=== PATIENT | male | born 1965 | race American Indian/Alaskan Native ===

== ENCOUNTER 2021-02-07 18:26 | Emergency (ER) | payer MEDICAID ==
[2021-02-07 18:33] VITALS: BP 136/91
[2021-02-07] MEDS ORDERED: ACETAMINOPHEN 325 MG/10.15 ML ORAL LIQD UNIT DOSE PO PRN (18:33)
[2021-02-07] MEDS ORDERED: predniSONE 20 MG TAB PO ONE (19:48)
[2021-02-07] MEDS ORDERED: ACETAMINOPHEN 325 MG/10.15 ML ORAL LIQD UNIT DOSE PO ONE (19:49)
--- NOTE | 2021-02-07 19:56 | Emergency Department Report ---
ED General Adult HPI - General Chief complaint: Sore Throat Stated complaint: POSS TONSILLITIS Time Seen by Provider: 02/07/21 19:47 Source: patient Mode of arrival: Ambulatory Limitations: No Limitations - History of Present Illness Initial comments: 55-year-old -[place] male patient presents with complaints of sore throat x2 days. He reports a history of recurrent strep as a child. He denies any cough, shortness of breath, chest pain, rash, or recent known sick contacts. He rates his current pain as a 9/10 in severity and states it is not improving with ibuprofen at home. Pain worsens with swallowing per patient. He denies any other prior medical history -: Sudden Severity scale (0 -10): 10 - Related Data Previous Rx's Medication Instructions Recorded Last Taken Type Amoxicillin [Trimox CAP] 500 mg PO BID 10 Days #20 capsule 02/07/21 Unknown Rx predniSONE [Deltasone] 20 mg PO QDAY 2 Days #2 tab 02/07/21 Unknown Rx Allergies Allergy/AdvReac Type Severity Reaction Status Date / Time No Known Allergies Allergy Unverified 02/07/21 18:29 ED Review of Systems ROS: Stated complaint: POSS TONSILLITIS Other details as noted in HPI Constitutional: malaise. 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 Absent: scleral icterus - Expanded ENT Exam Expanded Mouth exam: Absent: drooling, trismus, muffled voice Throat exam: Positive: tonsillar erythema (Bilateral), tonsillomegaly (Bilateral), tonsillar exudate (Bilateral), other (Uvula is midline). Negative: R peritonsillar mass, L peritonsillar mass - Neck Neck exam: Present: full ROM, lymphadenopathy (Mild anterior cervical) - Respiratory Respiratory exam: Present: normal lung sounds bilaterally. Absent: respiratory distress - Cardiovascular Cardiovascular Exam: Present: regular rate, normal rhythm - Neurological Exam Neurological exam: Present: alert, oriented X3 - Psychiatric Psychiatric exam: Present: normal affect, normal mood - Skin Skin exam: Present: warm, dry, intact, normal color. Absent: rash, cyanosis, diaphoretic, petechiae, pallor, ecchymosis ED Course Vital Signs 02/07/21 02/07/21 18:30 19:59 Temperature 101.4 F H Pulse Rate 92 H Respiratory 22 18 Rate Blood Pressure 136/91 O2 Sat by Pulse 99 Oximetry ED Medical Decision Making - Medical Decision Making 55-year-old -[place] male patient presents with complaints of sore throat x2 days. He reports a history of recurrent strep as a child. He denies any cough, shortness of breath, chest pain, rash, or recent known sick contacts. He rates his current pain as a 9/10 in severity and states it is not improving with ibuprofen at home. Pain worsens with swallowing per patient. He denies any other prior medical history Acute bacterial pharyngitis noted on exam. Will treat with Amoxil. Recommend follow-up with PCP in 3 to 5 days. Fever improved with Tylenol given here in ED. He is well-appearing and stable for discharge home. Discussed signs and symptoms that should prompt immediate return to the emergency department in detail with patient who verbalizes understanding. Critical care attestation.: If time is entered above; I have spent that time in minutes in the direct care of this critically ill patient, excluding procedure time. ED Disposition Clinical Impression: Acute bacterial pharyngitis Disposition: DC-01 TO HOME OR SELFCARE Is pt being admited?: No Condition: Stable Instructions: Strep Throat, Adult Prescriptions: predniSONE [Deltasone] 20 mg PO QDAY 2 Days #2 tab Amoxicillin [Trimox CAP] 500 mg PO BID 10 Days #20 capsule Forms: Work/School Release Form(ED) Time of Disposition: 19:53
== END 2021-02-07 20:30 | disposition home or self-care (01) ==
LOC: ED 18:26
DX: J02.8 Acute pharyngitis due to other specified organisms (principal); B96.89 Other specified bacterial agents as the cause of diseases classified elsewhere; F12.90 Cannabis use, unspecified, uncomplicated; Z79.899 Other long term (current) drug therapy
CPT/HCPCS: 99282; J7512

== ENCOUNTER 2021-07-25 21:05 | Emergency (ER) | payer MEDICAID ==
[2021-07-25] MEDS ORDERED: hydrOXYzine PAMOATE 25 MG CAP PO ONE (21:27)
[2021-07-25] MEDS ORDERED: methylPREDNISolone Sod Succinate 125 MG/2 ML INJ IM ONE (21:27)
[2021-07-25] MEDS ORDERED: FAMOTIDINE 20 MG TAB PO ONE (21:27)
--- NOTE | 2021-07-25 23:51 | Emergency Department Report ---
ED Allergic Reaction HPI - General Chief complaint: Allergic Reaction Stated complaint: allergic rx Source: patient Mode of arrival: Ambulatory Limitations: No Limitations - History of Present Illness Initial Comments: Patient is a 56-year-old -Vietnamese male with no past medical history presented to the ED with complaint of acute onset persistent diffuse itchy erythematous maculopapular erythematous acute urticarial rashes on the face and on the scalp for the last 2 days after using a different dye to dye his hair 2 days ago. Patient states that he tried to take Benadryl at home with no relief. Patient denies dizziness, syncope, dysphagia, dysphonia, cough, wheezing, chest pain, shortness of breath, nausea, vomiting, fever, chills or palpitations. MD Complaint: allergic reaction, hives, facial swelling, other (Itchy scalp) -: Sudden, days(s) (2) Exposure: other (Hair dye) Symptoms: rash, itching, facial swelling. denies: lip swelling, difficulty swallowing, difficulty breathing, orolingual swelling, hoarseness, syncopy, nausea, vomiting, other Severity: moderate Treatment Prior to Arrival: benadryl Previous Allergy History: none - Related Data Previous Rx's Medication Instructions Recorded Last Taken Type Amoxicillin [Trimox CAP] 500 mg PO BID 10 Days #20 capsule 02/07/21 Unknown Rx predniSONE [Deltasone] 20 mg PO QDAY 2 Days #2 tab 02/07/21 Unknown Rx Famotidine [Pepcid] 20 mg PO BID #30 tablet 07/25/21 Unknown Rx Prednisone [predniSONE 10 mg 10 mg PO .TAPER #1 tab.ds.pk 07/25/21 Unknown Rx (6-Day Pack, 21 Tabs)] hydrOXYzine PAMOATE [Vistaril] 50 mg PO Q8HR PRN #30 capsule 07/25/21 Unknown Rx Allergies Allergy/AdvReac Type Severity Reaction Status Date / Time No Known Allergies Allergy Unverified 02/07/21 18:29 ED Review of Systems ROS: Stated complaint: allergic rx Other details as noted in HPI Constitutional: denies: chills, fever Eyes: other (With mild swelling). denies: eye pain, eye discharge, vision change ENT: denies: ear pain, throat pain Respiratory: denies: cough, shortness of breath, wheezing Cardiovascular: denies: chest pain, palpitations Endocrine: no symptoms reported Gastrointestinal: denies: abdominal pain, nausea, diarrhea Genitourinary: denies: urgency, dysuria Musculoskeletal: denies: back pain, joint swelling, arthralgia Skin: rash (Itchy erythematous maculopapular rashes on scalp and face), change in color, pruritus. 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 - Surgical History Past Surgical History?: No Additional Surgical History: BRAIN - Social History Smoking Status: Never Smoker Substance Use Type: Marijuana - Medications Home Medications: Home Medications Medication Instructions Recorded Confirmed Last Taken Type Amoxicillin [Trimox CAP] 500 mg PO BID 10 Days #20 capsule 02/07/21 Unknown Rx predniSONE [Deltasone] 20 mg PO QDAY 2 Days #2 tab 02/07/21 Unknown Rx Famotidine [Pepcid] 20 mg PO BID #30 tablet 07/25/21 Unknown Rx Prednisone [predniSONE 10 mg 10 mg PO .TAPER #1 tab.ds.pk 07/25/21 Unknown Rx (6-Day Pack, 21 Tabs)] hydrOXYzine PAMOATE [Vistaril] 50 mg PO Q8HR PRN #30 capsule 07/25/21 Unknown Rx ED Physical Exam - General Limitations: No Limitations General appearance: alert, in no apparent distress - Head Head exam: Present: other (Mildly erythematous maculopapular urticarial rashes on the scalp with clear discharge) - Eye Eye exam: Present: normal appearance, PERRL, EOMI, other (Mild bilateral eyelid swelling) Pupils: Present: normal accommodation - ENT ENT exam: Present: normal exam, normal orophraynx, mucous membranes moist, TM's normal bilaterally, normal external ear exam - Neck Neck exam: Present: normal inspection, full ROM. Absent: tenderness, meningismus, lymphadenopathy, thyromegaly - Respiratory Respiratory exam: Present: normal lung sounds bilaterally. Absent: respiratory distress, wheezes, rales, rhonchi, chest wall tenderness, accessory muscle use, decreased breath sounds, prolonged expiratory - Cardiovascular Cardiovascular Exam: Present: regular rate, normal rhythm, normal heart sounds. Absent: bradycardia, tachycardia, systolic murmur, diastolic murmur, rubs, gallop - GI/Abdominal GI/Abdominal exam: Present: soft, normal bowel sounds. Absent: distended, tenderness, guarding, hyperactive bowel sounds, hypoactive bowel sounds, organomegaly - Extremities Exam Extremities exam: Present: normal inspection, full ROM, normal capillary refill - Back Exam Back exam: Present: normal inspection, full ROM. Absent: tenderness, CVA tenderness (R), CVA tenderness (L), muscle spasm, paraspinal tenderness, vertebral tenderness - Neurological Exam Neurological exam: Present: alert, oriented X3, CN II-XII intact, normal gait, reflexes normal - Psychiatric Psychiatric exam: Present: normal affect, normal mood - Skin Skin exam: Present: warm, dry, intact, normal color, rash (Mild erythematous maculopapular urticarial rashes on the face and scalp), erythema, urticaria ED Course Vital Signs 07/25/21 21:10 Temperature 98.3 F Pulse Rate 83 Respiratory 16 Rate Blood Pressure 136/96 O2 Sat by Pulse 97 Oximetry ED Medical Decision Making - Medical Decision Making This is a 56-year-old -[place] male with no past medical history presented to the ED with complaint of acute onset persistent diffuse itchy erythematous maculopapular erythematous acute urticarial rashes on the face and on the scalp for the last 2 days after using a different dye to dye his hair 2 days ago. Patient states that he tried to take Benadryl at home with no relief. In the ED, patient is alert and oriented x3 and is not in any distress. Patient is hemodynamically stable. Patient was treated in the ED with Vistaril, Pepcid and Solu-Medrol 125 mg intramuscular injection. On reevaluation, patient's itching resolved with medications. Patient was discharged home on more steroid prescriptions and Pepcid and was advised to follow-up with his primary care physician in 7 to 10 days for reevaluation. Patient was also advised to stop using the dye immediately to stop the symptoms. Patient was advised return to the ED immediately if symptoms get worse. - Differential Diagnosis Acute urticaria; itching; allergic reaction; angioedema; Critical care attestation.: If time is entered above; I have spent that time in minutes in the direct care of this critically ill patient, excluding procedure time. ED Disposition Clinical Impression: Allergic reaction to hair dye, Itching with irritation, Acute urticaria Acute allergic reaction Qualifiers: Encounter type: initial encounter Qualified Code(s): T78.40XA - Allergy, unspecified, initial encounter Disposition: HOME / SELF CARE / HOMELESS Is pt being admited?: No Does the pt Need Aspirin: No Condition: Stable Instructions: Allergies, Adult, [id number], Hives, [id number], Rash, Adult, [id number] Additional Instructions: Stop using the dye immediately. Take medication as advised and follow-up with your primary care physician in 7 to 10 days for reevaluation. Return to the ED immediately if symptoms get worse. Prescriptions: Famotidine [Pepcid] 20 mg PO BID #30 tablet Prednisone [predniSONE 10 mg (6-Day Pack, 21 Tabs)] 10 mg PO .TAPER #1 tab.ds.pk hydrOXYzine PAMOATE [Vistaril] 50 mg PO Q8HR PRN #30 capsule PRN Reason: Itching Referrals: [facility] [Provider Group] - 7-10 days Time of Disposition: 23:50 Print Language: MOLDOVAN
[2021-07-26 00:13] VITALS: BP 148/102
== END 2021-07-26 00:14 | disposition home or self-care (01) ==
LOC: ED 21:05
DX: L23.4 Allergic contact dermatitis due to dyes (principal); L29.9 Pruritus, unspecified; X58.XXXA Exposure to other specified factors, initial encounter; F12.90 Cannabis use, unspecified, uncomplicated
CPT/HCPCS: 96372; 99282; J2930; Q0177; J3490